=== PATIENT | female | born 1995 | race Caucasian/White ===

== ENCOUNTER 2022-01-08 21:37 | Inpatient (IN) ==
[2022-01-08] MEDS ORDERED: fentaNYL citrate 100 MCG/2 ML VIAL ONE (22:38)
[2022-01-08] MEDS ORDERED: BUPIVACAINE 0.25% 30 ML VIAL ONE (22:38)
[2022-01-08] MEDS ORDERED: SODIUM CHLORIDE 0.9% INJ 10 ML VIAL ONE (22:38)
[2022-01-08] MEDS ORDERED: ePHEDrine sulfate 50 MG/ML AMP ONE (22:38)
[2022-01-08] MEDS ORDERED: fentaNYL 2MCG/ML ROPIVACAINE 1.25MG/ML 100 ML BAG EPI ONE (22:39)
[2022-01-08] MEDS ORDERED: OXYTOCIN 30 UNITS/500 ML BAG IV PRN (22:45)
[2022-01-08] MEDS ORDERED: LACTATED RINGER'S 1,000 ML IV PRN (22:45)
[2022-01-08] MEDS ORDERED: PENICILLIN G POTASSIUM 6 MU in DEXTROSE 5% 250 ML IV STA (22:45)
--- NOTE | 2022-01-08 22:50 | History & Physical Report ---
Date of Service January 08, 2022 Assessment & Plan (1) Active labor at term: (2) complicated by subutex maintenance, antepartum: (3) Group beta Strep positive: Plan: admit, iv, labs. desires epidural, then plan arom(try to get the pcn in and 4hr). fhts categ 1. anticip . History of Present Illness Chief Complaint: labor Primary Care Provider: NO PCP 26yo at 39+wks jose juan presents to L&D with above cc. She called with q5-10 min ctx, no rom or vb and history of rapid labor and advised to come to LD. Per nurse, ctx not well traced but cx 5cm and rec admission. PNC c/b 1. h/o drug abuse--on subutex 2. smoker 3. gbs pos PNL rh pos, ri, gbs pos OBH: x 2 GYNH: nl paps Allergies Allergy/AdvReac Type Severity Reaction Status Date / Time No Known Allergies Allergy Verified 01/08/22 21:43 Home Medications Medication Instructions Recorded Confirmed Type buprenorphine HCl [Subutex] SUBLINGUAL 05/21/21 01/04/22 History prenat.vits,kayode,imt-mwaw-fptll PO 07/16/21 01/04/22 History Patient History Medical History (Updated 01/08/22 @ 23:03 by Harriet Valdez MD, FACOG) Opioid abuse Varicella vaccination Surgical History S/P cholecystectomy Family History (Updated 05/21/21 @ 10:59 by Tori Chiang) Mother Thyroid disease Denies family history of Ovarian cancer Breast cancer Colorectal cancer Social History (Updated 05/21/21 @ 11:01 by Tori Chiang) Smoking Status: Current every day smoker Tobacco Type: Cigarettes Cigarettes Per Day: 10; Hx Alcohol Use: No Hx Substance Use: Yes Last Used Substance Other:: LAST DOSE THIS AM. Hx herion use. Substance Use Type Other:: subutex 8 BID Preferred Language: Faroese Communication Ability: Effective [employer] Required: No Beliefs That Will Affect Care: None marital status: Single marital status details: foenedina Merissa Gomes(31) [phone] Current Living Situation: Spouse and Parent Current Living Situation Comment: 3 kids, merissa has 1 kid who is 13 current occupational status: unemployed Feels Safe at Home: Yes Safety Concerns: Feels Safe At This Time Review of Systems as per Subjective / HPI Physical Exam Constitutional: WD/WN, vitals as above Gastrointestinal (Abdomen): soft gravid Musculoskeletal: no edema Neurologic: grossly normal Psychiatric: A+Ox3, euthymic affect Genitourinary: Manual OB Exam: + cervical dilation 7 cm, + cervical effacement 90% and + station -1 OB Exam Monitor Tracing: + external FHT monitor used, + external uterine monitor used (q3), + category I and + normal FHT variability Results & Data ([facility]) Vital Signs (Past 12 Hours) Vital Signs Temp Pulse Resp BP 01/08/22 22:19 98.1 F 82 18 125/71 Code Status & VTE Plan VTE Prophylaxis Plan VTE Prophylaxis will be ordered: No Coding Level of Care Code None Diagnoses Active labor at term complicated by subutex maintenance, antepartum O99.320; F11.20 Group beta Strep positive B95.1
[2022-01-08 23:02] LABS: Hematocrit (blood only) 32.9 % (37-47); Hemoglobin 11.1 g/dL (12.0-16.0); Mean Corpuscular Hemoglobin 28.4 pg (25-34); Mean Corpuscular Hgb Conc 33.7 g/dL (32-36); Mean Corpuscular Volume 84.1 fL (80-100); Mean Platelet Volume 11.1 fL (7.4-10.4); Platelet Count 279 K/uL (130-400); RDW Coefficient of Variation 13.5 % (11.5-14.5); RDW Standard Deviation 40.6 fL (36.4-46.3); Red Blood Count 3.91 M/uL (4.2-5.4); White Blood Count 17.09 K/uL (4.8-10.8)
--- NOTE | 2022-01-08 23:05 | Anesthesiology Consultation ---
Date of Service January 08, 2022 Assessment & Plan (1) Encounter for pre-operative examination: Chart Review Chart Review: Acceptable Risk for Labor Epidural History Height/Weight Height: 5 ft 2 in Weight: 76.657 kg Allergies Allergy/AdvReac Type Severity Reaction Status Date / Time No Known Allergies Allergy Verified 01/08/22 21:43 Medications Home Medications Medication Instructions Recorded Confirmed Last Taken buprenorphine HCl [Subutex] SUBLINGUAL 05/21/21 01/04/22 Unknown prenat.vits,kayode,gqm-mnmv-pdfog PO 07/16/21 01/04/22 Unknown Active Medications Generic Name Dose Route Start Last Admin Trade Name Freq PRN Reason Stop Dose Admin Lactated Ringer's 1,000 mls @ 125 mls/hr 01/08/22 22:45 01/08/22 23:02 Lr IV 01/10/22 22:44 999 mls/hr .Q8H PRN Administration L&D Protocol Protocol Penicillin G Potassium 6 mu/ 262 mls @ 262 mls/hr 01/08/22 22:45 01/08/22 23:03 Dextrose IV 01/08/22 23:44 262 mls/hr NOW STA Administration Past Medical History Medical History Opioid abuse Varicella vaccination Past Family History Family History Mother Thyroid disease Denies family history of Ovarian cancer Breast cancer Colorectal cancer Past Surgical History Surgical History S/P cholecystectomy Social History Smoking Status: Current every day smoker tobacco type: cigarettes Smoking cigarettes per day: 10 Hx Alcohol Use: No Hx Substance Use: Yes substance use type: heroin Substance Use Type Other:: subutex 8 BID Last Used Substance Other:: LAST DOSE THIS AM. Hx herion use. Physical Exam Vital Signs Last Vital Signs Temp 36.7 C 01/08/22 22:19 Pulse 82 01/08/22 22:19 Resp 18 01/08/22 22:19 BP 125/71 01/08/22 22:19 Testing Laboratory Results 01/08/22 22:53
[2022-01-08] MEDS ORDERED: OXYTOCIN 20 UNITS in LACTATED RINGER'S 1,000 ML IV SCH (23:30)
--- NOTE | 2022-01-08 23:33 | Delivery Summary ---
Vaginal Delivery Summary Date of Service January 08, 2022 Vaginal Delivery Summary Patient requested arom, strong urge to push. SVE 10cm, arom clear. The patient dilated to complete and pushed to deliver a viable male Apgars 9 and 10 via . Mouth and nose bulb suctioned at perineum. Shoulders and body delivered with ease. Infant was vigorous and crying at . Cord clamped at 30 seconds of life and to maternal abdomen where the cord was then doubly clamped and cut. Placenta delivered spontaneously and intact, three-vessel cord. Hemostasis achieved with dilute pitocin and uterine massage. Cervix and sulci intact. EBL 300 cc. Mother and baby stable recovery. [facility] Vaginal Delivery Charge Delivery Type Details: [facility]
[2022-01-09] MEDS ORDERED: BENZOCAINE 20% AER SPR 82.5 GM CAN EXT PRN (00:27)
[2022-01-09] MEDS ORDERED: DIPHTHERIA/TETANUS/PERTUSSIS 0.5 ML SYR/VIAL IM ONE (00:27)
[2022-01-09] MEDS ORDERED: HYDROCORTISONE ACETATE 25 MG SUPP PR PRN (00:27)
[2022-01-09] MEDS ORDERED: OXYTOCIN 30 UNITS/500 ML BAG IV PRN (00:27)
[2022-01-09] MEDS ORDERED: ACETAMINOPHEN 325 MG TAB PO PRN (00:27)
[2022-01-09] MEDS ORDERED: oxyCODONE/ACETAMINOPHEN 5mg/325mg TAB PO PRN (00:27)
[2022-01-09] MEDS ORDERED: bisacodyL 10 MG SUPP PR PRN (00:27)
[2022-01-09] MEDS ORDERED: IBUPROFEN 600 MG TAB PO PRN (00:27)
[2022-01-09] MEDS ORDERED: PENICILLIN G POTASSIUM 3 MU in DEXTROSE 5% 100 ML IV PRN (01:45)
--- NOTE | 2022-01-09 06:12 | Obstetrical Progress Note ---
Date of Service January 09, 2022 Assessment & Plan (1) Vaginal delivery: 26 yo , complicated by opioid use disorder on suboxone maintenance and current daily smoker, now PPD1 from at 39wk5d -Continue routine care -Vitals reviewed- HDS, afebrile -Blood type O+, GBS+, Rubella immune. Treated with PCN intrapartum. -Encourage ambulation -Encourage -Pain control with ibuprofen, acetaminophen PRN -F/u in 6 weeks with OB Subjective Ambulation: ambulating normally Voiding: no voiding problems Passing Gas:: Yes Diet Tolerance:: regular diet Lochia:: Small Feeding Type:: breast feeding Current Pain Level(1-10): 0 Pt doing well overall, no acute complaints or distress. Pain well controlled with medication. Review of Systems Denies fever/chills. Denies dyspnea, cough. Denies chest pain. Denies breast pain or discharge. Denies dysuria. Denies headache. Denies back pain. Physical Exam General: Alert, oriented, no acute distress Cardiac: Regular rate and rhythm, normal S1, S2. No murmurs appreciated. Respiratory: Clear to auscultation b/l with good air flow entry, symmetric chest rise and fall. No wheezes or crackles. No increased work of breathing or accessory muscle use Abdomen: Soft, nontender, nondistended. Fundus firm and palpable at 1 cm below umbilicus. No guarding or rebound. Skin: No rashes or lesions Extremities: Warm, dry, well-perfused with capillary refill <2s b/l. No lower extremity edema, erythema, swelling or calf tenderness b/l. Results & Data ([facility]) Vital Signs (Past 12 Hours) Vital Signs Temp Pulse Resp BP 01/09/22 01:27 83 113/58 L 01/09/22 00:57 61 118/58 L 01/09/22 00:27 69 122/68 01/09/22 00:12 66 118/70 01/08/22 23:57 73 113/63 01/08/22 23:42 63 119/65 01/08/22 23:27 81 105/56 L 01/08/22 22:19 36.7 C 82 18 125/71 Resident Activity Tracking Resident Involvement: Resident Care Provided Care Provided: OB Delivery
--- NOTE | 2022-01-09 06:41 | Obstetrical Progress Note ---
Date of Service January 09, 2022 Assessment & Plan (1) care and examination: stable, routine care. bottle feeding, rh pos, ri. dosing her am subutex, apparently staff calling to confirm dosing with clinic she uses in [place] and then will let us know if need to adjust order. nicotine patch requested and ordered. Day #:: 1 Subjective Ambulation: ambulating normally Voiding: no voiding problems Diet Tolerance:: regular diet Lochia:: Small Feeding Type:: bottle feeding denies pain, requests nicotine patch, needs dose of subutex this am. apparently may be bid dosing but needs to still be confirmed with clinic she gets from. Constitutional: + as per Subjective / HPI Physical Exam Constitutional WD/WN, vitals as above Respiratory normal respiratory effort, lungs clear to auscultation Cardiovascular Rate/Rhythm: regular rate and regular rhythm Gastrointestinal (Abdomen) Inspection/Auscultation: abdomen normal to inspection Percussion/Palpation: abdomen soft Fundus firm 2cm down Musculoskeletal nt calves no edema Neurologic grossly normal Psychiatric A+Ox3, euthymic affect Results & Data ([facility]) Vital Signs (Past 12 Hours) Vital Signs Temp Pulse Resp BP 01/09/22 01:27 83 113/58 L 01/09/22 00:57 61 118/58 L 01/09/22 00:27 69 122/68 01/09/22 00:12 66 118/70 01/08/22 23:57 73 113/63 01/08/22 23:42 63 119/65 01/08/22 23:27 81 105/56 L 01/08/22 22:19 98.1 F 82 18 125/71
[2022-01-09] MEDS: PRENATAL VITAMIN 1 TAB PO SCH (08:21)
[2022-01-09] MEDS: DOCUSATE SODIUM 100 MG CAP PO SCH ×2 (08:21→20:59)
[2022-01-09] MEDS ORDERED: buprenorphine HCL 8 MG SUBL SL SCH (09:00)
[2022-01-09] MEDS: NICOTINE 7 MG/24 HR TDSY TD SCH (09:56)
[2022-01-09] MEDS: buprenorphine HCL 8 MG SUBL SL SCH (20:59)
--- NOTE | 2022-01-10 05:35 | Obstetrical Progress Note ---
Date of Service <Levar Doe MD - Last Filed: 01/10/22 07:25> January 10, 2022 Assessment & Plan <Levar Doe MD - Last Filed: 01/10/22 07:25> (1) Vaginal delivery: 26 yo , complicated by opioid use disorder on suboxone maint enance and current daily smoker, now PPD2 from at 39wk5d -Discharge to [facility] today, instructions reviewed with patient -Vitals reviewed- HDS, afebrile -GBS+, treated with PCN intrapartum -Baby to be monitored for MALACHI -F/u in 6 weeks with OB <Emily Escalera MD, FACOG - Last Filed: 01/10/22 07:33> (1) Vaginal delivery: Subjective <Levar Doe MD - Last Filed: 01/10/22 07:25> Ambulation: ambulating normally Voiding: no voiding problems Passing Gas:: Yes Diet Tolerance:: regular diet Lochia:: Small Feeding Type:: bottle feeding Current Pain Level(1-10): 0 Pt doing well overall, no acute complaints or distress. Pain well controlled with medication. Understands plan is to have baby monitored for 5 days for MALACHI. Review of Systems Denies fever/chills. Denies dyspnea, cough. Denies chest pain. Denies breast pain or discharge. Denies dysuria. Denies headache. Denies back pain. Physical Exam <Levar Doe MD - Last Filed: 01/10/22 07:25> General: Alert, oriented, no acute distress Cardiac: Regular rate and rhythm, normal S1, S2. No murmurs appreciated. Respiratory: Clear to auscultation b/l with good air flow entry, symmetric chest rise and fall. No wheezes or crackles. No increased work of breathing or accessory muscle use Abdomen: Soft, nontender, nondistended. Fundus firm and palpable at 2 cm below umbilicus. No guarding or rebound. Skin: No rashes or lesions Extremities: Warm, dry, well-perfused with capillary refill <2s b/l. No lower extremity edema, erythema, swelling or calf tenderness b/l. Results & Data ([facility]) <Levar Doe MD - Last Filed: 01/10/22 07:25> Vital Signs (Past 12 Hours) Vital Signs Temp Pulse Resp BP Pulse Ox 01/09/22 23:15 36.7 C 63 16 93/58 L 99 01/09/22 20:05 36.7 C 69 16 110/63 100 <Emily Escalera MD, FACOG - Last Filed: 01/10/22 07:33> Co-Signing Physician Notes Resident Physician Supervision Note: I interviewed and examined the patient. Discussed with Dr. Doe and agree with findings and plan as documented in the note. Any exceptions or clarifications are listed here: [None] Documented By: Emily Escalera MD, FACOG Resident Activity Tracking <Levar Doe MD - Last Filed: 01/10/22 07:25> Resident Involvement: Resident Care Provided Care Provided: OB Delivery
[2022-01-10] MEDS: PRENATAL VITAMIN 1 TAB PO SCH (08:44)
[2022-01-10] MEDS: DOCUSATE SODIUM 100 MG CAP PO SCH (08:44)
[2022-01-10] MEDS: NICOTINE 7 MG/24 HR TDSY TD SCH (10:17)
[2022-01-10] MEDS: buprenorphine HCL 8 MG SUBL SL SCH (10:21)
== END 2022-01-10 11:27 | disposition home or self-care (01) | DRG 806 ==
LOC: OPB 21:37 → 4S1 21:38 → 4E2 01-09 02:24
DX: O99.824 Streptococcus B carrier state complicating childbirth; O99.324 Drug use complicating childbirth; Z90.49 Acquired absence of other specified parts of digestive tract; Z37.0 Single live birth; O99.334 Smoking (tobacco) complicating childbirth; Z3A.39 39 weeks gestation of pregnancy; F11.20 Opioid dependence, uncomplicated; F17.210 Nicotine dependence, cigarettes, uncomplicated